=== PATIENT | male | born 1960 | race African-American/Black ===

== ENCOUNTER 2022-03-15 13:18 | Emergency (ER) | payer MEDICAID ==
[~2022-03-15] VITALS: Ht 175.3 cm; Wt 90.0 kg
[~2022-03-15 13:18] MED LIST: IBUP-1051 PO; NO HOME MEDS
[2022-03-15 13:41] VITALS: BP 142/101
[2022-03-15] MEDS ORDERED: LIDOcaine 1% 30ml preserv. free vial IJ ONE (14:50)
[2022-03-15] MEDS ORDERED: oxyCODONE IR 5mg (immed. release) tablet PO ONE (14:50)
[2022-03-15] MEDS ORDERED: cephalexin 500mg capsule PO ONE (17:35)
[2022-03-15] MEDS ORDERED: AMOX-117 PO (17:36)
[2022-03-15] MEDS ORDERED: amox tr/potassium clavulanate 875/125mg TAB PO ONE (17:40)
== END 2022-03-15 18:05 | disposition home or self-care (01) ==
LOC: ER 13:18
DX: S01.511A Laceration without foreign body of lip, initial encounter (principal); F12.10 Cannabis abuse, uncomplicated; F15.10 Other stimulant abuse, uncomplicated; Z59.00 Homelessness unspecified; Z56.0 Unemployment, unspecified; Z79.899 Other long term (current) drug therapy; W22.8XXA Striking against or struck by other objects, initial encounter; Y93.89 Activity, other specified; Y92.89 Other specified places as the place of occurrence of the external cause; Y99.8 Other external cause status
CPT/HCPCS: 12011; 99284; A6449